=== PATIENT | female | born 1970 | race African-American/Black ===

== ENCOUNTER 2021-08-27 12:59 | Inpatient (IN) | payer BC ==
[2021-08-27 22:13] VITALS: BMI 22.8
[2021-08-28 15:03] VITALS: BP 121/69; TEMP 97.7
== END 2021-08-28 16:45 | disposition home or self-care (01) | DRG 812 ==
LOC: ERS 12:59 → 2SW 17:23
PROVIDERS: ADMIT Family Medicine; ATTEND Internal Medicine
PROC: 30233N1 Transfusion of Nonautologous Red Blood Cells into Peripheral Vein, Percutaneous Approach (ICD-10-PCS; principal; 2021-08-27)
DX: D50.0 Iron deficiency anemia secondary to blood loss (chronic) (principal); N13.30 Unspecified hydronephrosis; E87.2 Acidosis; D25.9 Leiomyoma of uterus, unspecified; N93.8 Other specified abnormal uterine and vaginal bleeding; E53.8 Deficiency of other specified B group vitamins; Z20.822 Contact with and (suspected) exposure to COVID-19; Z88.6 Allergy status to analgesic agent; Z91.013 Allergy to seafood; R00.0 Tachycardia, unspecified
CPT/HCPCS: 36415; 36430; 74177; 80053; 80061; 82274; 82607; 82728; 82746; 83540; 84484; 85025; 85046; 85060; 86850; 86900; 86901; 93005; 96374; 99292; C9113; J2916; J7050; P9016; Q9967; U0003; U0005

== ENCOUNTER 2023-12-03 12:24 | Outpatient (CLI) | payer BC | END 2023-12-03 12:25 | disposition home or self-care (01) | LOC: BICRAD 12:24 | PROVIDERS: ATTEND Family Medicine | DX: M79.641 Pain in right hand (principal); M79.642 Pain in left hand; L40.50 Arthropathic psoriasis, unspecified ==